=== PATIENT | female | born 1955 | race Caucasian/White ===

== ENCOUNTER 2025-07-04 12:19 | Emergency (ER) | payer MEDICARE, BC, SELFPAY ==
[2025-07-04 12:29] VITALS: BP 123/72
--- NOTE | 2025-07-04 14:35 | ED.GENMED ---
History of Present Illness
General
Chief Complaint: Jaw Pain
Source: patient
Exam Limitations: none
Time Seen by Provider: 07/04/25 13:55
Nursing documentation reviewed up to this point in time: agreed with
History of Present Illness
History of Present Illness:
Patient status post right lower tooth extraction 1 week ago with subsequent procedure requiring 'filing down of the bone' by her dentist, currently on clindamycin, presents to ED secondary to worsening pain since the procedure. Denies fever or
chills. Denies nausea or vomiting. Patient reports difficulty opening and closing her mouth due to pain. Denies any neck swelling. Denies difficulty with swallowing. Denies difficulty speech. Denies headache. Denies dizziness. No loss of
appetite.
Past History
Past History
ED Past Medical History: Asthma, GERD and Other
ED Past Surgical History: Other
Social History
Tobacco: Non-smoker
Alcohol: None
Drug: None
Personal:
Living: with family
Employment: Employed
Review of Systems
Review of Systems
Allergies reviewed?: Yes
Constitutional: Reports no symptoms; Denies fever or chills
EENT: Reports other (Toothache)
Respiratory: Denies trouble breathing
ABD/GI: Reports no symptoms
Musculoskeletal: Reports other (jaw pain)
Skin: Reports no symptoms
Neurological: Reports no symptoms
Phy Exam
Physical Exam
Physical Exam:
Physical Exam
General: mild painful distress, not acutely ill. afebrile
Head: nc/at. eomi
Neck: supple. normal range of motion. #30 tooth extracted without swelling or open wound. no associated gingival swelling noted.
Abdomen: normal bowel sounds. not tender.
Neuro: alert and oriented x 3. no focal neurological deficits
Skin: no rash
Psychiatric: well kept. interactive and cooperative
Extremities: no edema. no calf tenderness.
Course
Orders/Labs/Results
Orders:
Orders
07/04/25 13:04
Jaw/Mandible Complete [CR Jaw/mandible Comp Min 4 Vw*] Urgent
Comment:
Reason For Exam: pain
Vital Signs
Initial and Last Documented VS:
Initial Vital Signs
Temp Pulse Resp BP Pulse Ox
98.0 F 63 16 123/72 96
07/04/25 12:29 07/04/25 12:29 07/04/25 12:29 07/04/25 12:29 07/04/25 12:29
Last Documented Vital Signs
Temp Pulse Resp BP Pulse Ox
98.0 F 64 16 97/66 96
07/04/25 12:29 07/04/25 14:58 07/04/25 14:58 07/04/25 14:58 07/04/25 14:58
MDM/Problems Addressed
MDM/Problems Addressed:
History and exam consistent with continual postoperative pain, without any exam findings concerning for abscess development. In addition, x-ray without any acute fracture noted. Patient is otherwise afebrile, hemodynamically stable, and
nontoxic-appearing. As patient wishes to have different oral surgeon evaluated patient, patient will be referred to on-call OMFS surgeon for outpatient evaluation. Until then, patient will be advised to continue already prescribed antibiotics and
prescribed short course of pain medication, i.e. Percocet, which has helped her in short-term.
*Pulse Oximetry
SaO2: 96
Oxygen Mode of Delivery: Room air
Patient hypoxic: no
*Critical Care Note
Total Time (30-74mins, 75-104mins- exclusive of procedures): Not Applicable
ED Attending Note
-
Portions of this chart may have been created with voice recognition software.� Occasional wrong word or��sound alike� substitutions may have occurred due to the inherent limitations of voice recognition software.
Discharge Plan
Departure
Patient Disposition: Home (Routine Discharge)
Date of Disposition: 07/04/25
Time of Disposition: 14:45
Patient with high blood pressure during this ER visit?: Yes
Condition: Good
Discharge Problem:
Pain, dental
Instructions: Dental pain - ED (DC)
Prescriptions:
New
oxycodone-acetaminophen [Percocet] 7.5-325 mg tablet
1 tab PO TID PRN (Reason: Pain) Qty: 14 0RF
No Action
clonazepam 0.5 MG tablet
0.5 mg PO BIDPRN PRN (Reason: anxiety/sleep)
Patient Comments:
08/25/2019: Filled 60 for 30 days on 08/06/19
tetrahydrozoline [Visine] 30 ML drops
1 drp BOTH EYES DAILYPRN PRN (Reason: itching)
acetaminophen [Tylenol Extra Strength] 500 MG tablet
1,000 mg PO Q6HPRN PRN (Reason: mild pain/fever)
pantoprazole 40 MG tablet,delayed release (DR/EC)
40 mg PO DAILY
albuterol sulfate 1 PUFF HFA aerosol inhaler
2 puff inhalation R Q4HPRN PRN (Reason: sob)
dicyclomine 10 MG capsule
10 mg PO TID
Patient Comments:
08/25/19: Pt takes once daily
cholecalciferol (vitamin D3) 1,000 UNITS tablet
1,000 units PO DAILY
budesonide-formoterol [Symbicort] 1 PUFF HFA aerosol inhaler
2 puff inhalation R DAILY
vitamin E (dl, acetate) 400 UNITS capsule
400 units PO DAILY
thyroid (pork) [[place] Thyroid] 30 MG tablet
30 mg PO DAILY
sulfamethoxazole-trimethoprim 1 TABLET tablet
1 tab PO BID Qty: 14 0RF
Referrals:
Sada Malik, DMD [Active, Dental]
UNKNOWN - PT NOT,INTERVIEWE [Family Provider]
Activity Restrictions/Additional Instructions:
As discussed, please follow-up with referred oral surgeon for further evaluation and treatment. Your prescriptions been sent electronically to [facility] pharmacy in [place].
Interventions
Interventions:
*Risk Screen - Suicide Last Done: 07/04/25 12:22
[facility] Risk Assessment Tool Last Done: 07/04/25 13:59
*Nursing Disposition Last Done: 07/04/25 14:58
ED-EENT Assessment Last Done: 07/04/25 14:02
ED- Cardiac Assessment Last Done: 07/04/25 14:02
Discharge Date and Time
Discharge Date/Time: 07/04/25 14:58
Print Language: [email or web address]
[2025-07-04 14:58] VITALS: BP 97/66
== END 2025-07-04 14:58 | disposition home or self-care (01) ==
LOC: EMR 12:19
PROVIDERS: EMERGENCY PHYSICIAN Emergency Medicine
DX: K08.89 Other specified disorders of teeth and supporting structures (principal); R03.0 Elevated blood-pressure reading, without diagnosis of hypertension; J45.909 Unspecified asthma, uncomplicated; K21.9 Gastro-esophageal reflux disease without esophagitis
CPT/HCPCS: 99283; 70110